=== PATIENT | male | born 1995 | race Caucasian/White ===

== ENCOUNTER 2022-03-25 13:13 | Emergency (ER) | payer OTHER, SELFPAY ==
--- NOTE | ~2022-03-25 | XR_ITS ---
EXAMINATION: XR tibia fibula LT 2V DATE: 03/25/2022 14:13 INDICATION: Left lower leg laceration. TECHNIQUE: 2 views of left tibia and fibula on 3 radiographs were obtained. COMPARISON: None. FINDINGS: Bone alignment is normal. No fracture. Joint spaces are normal. There is a laceration anter ior to proximal tibia. IMPRESSION: 1. No fracture or radiopaque foreign body. Reviewed, dictated and finalized at location A.
[2022-03-25 13:38] VITALS: BP 130/76; PULSE 63; RESP 14; TEMP 36.6; O2SAT 99
--- NOTE | 2022-03-25 13:58 | ED.WOUNDLAC ---
HPI - Wound/Laceration General Chief Complaint: Wound/Laceration <ROYAL Longoria Last Filed: 03/25/22 15:40> Stated Complaint: work injury, left knee <ROYAL Longoria Last Filed: 03/25/22 15:40> Time Seen by Provider: 03/25/22 13:43 <ROYAL Longoria Last Filed: 03/25/22 15:40> Source: patient <ROYAL Longoria Last Filed: 03/25/22 15:40> Mode of arrival: ambulatory <ROYAL Longoria Last Filed: 03/25/22 15:40> Limitations: no limitations <ROYAL Longoria Last Filed: 03/25/22 15:40> History of Present Illness HPI narrative: Patient is a 26 y/o male who presents to the ED with c/o laceration to left lower leg. Patient reports he was riding a fertilizer machine today when the machine fell over, causing a laceration to his left yu. Patient has been able to ambulate still. Denies numbness/tingling. No other injuries. Tetanus status unknown. <ROYAL Longoria Last Filed: 03/25/22 15:40> Related Data Allergies/Adverse Reactions: Allergies Allergy/AdvReac Type Severity Reaction Status Date / Time No Known Allergies Allergy Verified 03/25/22 13:43 <ROYAL Longoria Last Filed: 03/25/22 15:40> Review of Systems Review of Systems: SKIN: Reports laceration to L yu. MUSCULOSKELETAL: Denies joint pain. NEUROLOGIC: Denies tingling, numbness, or weakness. <ROYAL Longoria Last Filed: 03/25/22 15:40> All systems reviewed & are unremarkable except as noted in HPI and below <ROYAL Longoria Last Filed: 03/25/22 15:40> PMFSH Past Medical History Medical History: Medical History No pertinent past medical history <Trinity Montalvo PA-C - Last Filed: 03/25/22 15:40> Surgical History Surgical History: Surgical History (Updated 03/25/22 @ 14:01 by Trinity Montalvo PA-C) History of appendectomy <Trinity Montalvo PA-C - Last Filed: 03/25/22 15:40> Social History Social History: Social History (Updated 03/25/22 @ 14:01 by Trinity Montalvo PA-C) Smoking status: Never smoker <Trinity Montalvo PA-C - Last Filed: 03/25/22 15:40> Exam Narrative: GENERAL: Well appearing, well-nourished, non-toxic, in no acute distress. HEAD: Normocephalic, atraumatic. NECK: Supple. No adenopathy, no masses. RESPIRATORY: Airway patent, respirations nonlabored. Clear to auscultation bilaterally, no rales, rhonchi, wheezing. CARDIOVASCULAR: Regular rate and rhythm without murmurs, rubs, or gallops. Pedal pulses 2+ and equal bilaterally. MUSCULOSKELETAL: Moves all extremities. Strength/ROM intact without gross deformities. Full ROM of L knee. Sensation intact. SKIN: Warm, dry, normal color. No rashes. Curvilinear 5cm lac to L proximal yu. Able to visualize muscle underneath, but no lacerations through muscle layer. No obvious tendon involvement. NEURO: A&O X3. Speech clear. Cranial nerves II-XII grossly intact. Steady gait. No ataxic movements. PSYCHIATRIC: Appropriate mood and affect. Normal interaction. <Trinity Montalvo PA-C - Last Filed: 03/25/22 15:40> Course PRODUCT TRAINER/PA Physician Supervision For this patient encounter, I reviewed the PRODUCT TRAINER or PA documentation, treatment plan, and medical decision making <Bhanu Naylor MD - Last Filed: 03/25/22 17:12> Vital Signs Vital signs: Vital Signs Temperature 97.8 F 03/25/22 13:38 Pulse Rate 63 03/25/22 13:38 Respiratory Rate 14 03/25/22 13:38 Blood Pressure 130/76 03/25/22 13:38 Pulse Oximetry 99 03/25/22 13:38 Oxygen Delivery Room Air 03/25/22 13:38 Temperature 97.8 F 03/25/22 13:38 Pulse Rate 63 03/25/22 13:38 Respiratory Rate 14 03/25/22 13:38 Blood Pressure 130/76 03/25/22 13:38 Pulse Oximetry 99 03/25/22 13:38 Oxygen Delivery Room Air 03/25/22 13:38 <Trinity N. G
[2022-03-25] MEDS: TETANUS,DIPHTHERIA,AC PERTUSSIS ADULT (0.5 ML) BOOSTRIX IM (14:03)
== END 2022-03-25 16:00 | disposition home or self-care (01) ==
PROVIDERS: Emergency Provider Emergency Medicine
DX: S81.812A Laceration without foreign body, left lower leg, initial encounter (principal); X58.XXXA Exposure to other specified factors, initial encounter; Z23 Encounter for immunization
CPT/HCPCS: 12002; 73590; 90471; 90715; 99283